=== PATIENT | male | born 1960 | race Caucasian/White ===

== ENCOUNTER 2019-09-06 11:57 | Emergency (ER) | payer SELFPAY ==
[2019-09-06 13:03] VITALS: BP 0/0
--- NOTE | 2019-09-06 17:34 | ED ---
Back Pain - HPI Summary HPI Summary: Patient is a 59-year-old male who presents emergency department for low back pain. Patient notes he's been having increasing pain over the last several months. Patient notes he recently moved to the area. Patient states he is following with the [facility] in [place] and was referred to orthopedics and is having an MRI scheduled. Patient states he did go through physical therapy and his back was feeling better until the last few days. Denies any new injuries or falls. Patient denies chest pain, shortness of breath, numbness tingling or weakness to legs. He does note radicular pain into legs. Denies bowel or bladder incontinence or retention. Denies fever. No history of IV drug use. Patient notes he has been taking gabapentin and anti-inflammatories and muscle relaxer without improvement of his pain. Symptoms are mild in severity. Movement makes symptoms worse. Nothing makes symptoms better. - History of Current Complaint Chief Complaint: EDBackInjuryPain Stated Complaint: BACK AND LEG PAIN PER PT Time Seen by Provider: 09/06/19 12:16 Hx Obtained From: Patient Pain Intensity: 4 Pain Scale Used: 0-10 Numeric - Allergies/Home Medications Allergies/Adverse Reactions: Allergies Allergy/AdvReac Type Severity Reaction Status Date / Time tramadol [From Ultram] Allergy Headache Verified 09/06/19 11:59 Home Medications: Home Medications HYDROcodone/ACETAMIN 5-325 MG* [[place] 5-325 TAB*] 1 tab PO Q6H PRN #12 tab MDD 4 09/06/19 [Rx] Lidocaine PATCH 5%* [Lidoderm 5% Patch*] 1 patch TRANSDERM DAILY #10 patch 09/05 [Rx] PMH/Surg Hx/FS Hx/Imm Hx Previously Healthy: Yes Infectious Disease History: No Infectious Disease History: Denies: Traveled Outside the [place] in Last 30 Days - Family History Known Family History: Positive: Non-Contributory - Social History Occupation: Retired Lives: With Family Alcohol Use: Occasionally Substance Use Type: Reports: None Smoking Status (MU): Former Smoker Review of Systems Constitutional: Negative Negative: Fever Cardiovascular: Negative Negative: Chest Pain Respiratory: Negative Negative: Shortness Of Breath Gastrointestinal: Negative Genitourinary: Negative Positive: Other - right low back pain radiates into right leg Neurological/Mental Status: Negative Negative: Weakness, Paresthesia, Numbness All Other Systems Reviewed And Are Negative: Yes Physical Exam Triage Information Reviewed: Yes Vital Signs On Initial Exam: Initial Vitals Temp Pulse Resp BP Pulse Ox 98.3 F 72 20 185/92 98 09/06/19 11:58 09/06/19 11:58 09/06/19 11:58 09/06/19 11:58 09/06/19 11:58 Vital Signs Reviewed: Yes Appearance: Positive: Well-Appearing - Patient sitting on bed in no acute distress. Skin: Positive: Warm, Dry Head/Face: Positive: Normal Head/Face Inspection Eyes: Positive: Normal, EOMI Neck: Positive: Supple Musculoskeletal: Positive: Other - 5 out of 5 strength bilateral lower extremities. Ambulatory. Significant pain over right SI joint. Neurological: Positive: Normal, CN Intact II-III Psychiatric: Positive: Affect/Mood Appropriate Procedures - Sedation Patient Received Moderate/Deep Sedation with Procedure: No Diagnostics - Vital Signs Vital Signs Temp Pulse Resp BP Pulse Ox 09/06/19 13:03 0 F 0 0 0/0 0 09/06/19 11:58 98.3 F 72 20 185/92 98 - Laboratory Lab Statement: Any lab studies that have been ordered have been reviewed, and results considered in the medical decision making process. Back Pain Course/Dx - Course Course Of Treatment: Patient with ongoing low back pain from recent injury. [facility]. Patient requesting pain medication as he has been having severe pain and difficulty sleeping. ENVIRONMENTAL SUSTAINABILITY MANAGER reviewed. We'll prescribe 3 days of pain medication and lidocaine patch. Advised patient she will need to see PCP for any further pain medication. We'll return to the ER for leg weakness/numbness, bowel or bladder incontinence or retention. Patient understands and agrees with plan. - Diagnoses Differential Diagnosis/HQI/PQRI: Positive: Arthritis, Herniated Disc, Neoplasm, Strain, Sprain Provider Diagnoses: Low back pain Discharge ED - Sign-Out/Discharge Documenting (check all that apply): Patient Departure - Discharge Plan Condition: Good Disposition: HOME Prescriptions: HYDROcodone/ACETAMIN 5-325 MG* [[place] 5-325 TAB*] 1 tab PO Q6H PRN #12 tab MDD 4 PRN Reason: Pain - Moderate Lidocaine PATCH 5%* [Lidoderm 5% Patch*] 1 patch TRANSDERM DAILY #10 patch Patient Education Materials: Back Pain (ED) Referrals: Catherine,Jenna L [Primary Care Provider] - Additional Instructions: [facility] scheduled Medication as directed Return to ER for increased pain, fever, leg numbness/weakness, loss of bowel or bladder control or if concerned - Billing Disposition and Condition Condition: GOOD Disposition: Home - Attestation Statements Provider Attestation: I was available for consult. This patient was seen by the SELINA. The patient was not presented to, seen by, or examined by me. Curry Islas MD
== END 2019-09-06 13:03 | disposition home or self-care (01) ==
LOC: ED 11:57
DX: M54.5 Low back pain (principal); Z87.891 Personal history of nicotine dependence
CPT/HCPCS: 99281